=== PATIENT | male | born 1980 | race Caucasian/White ===

== ENCOUNTER 2020-11-14 16:04 | Outpatient (CLI) | payer OTHER, SELFPAY ==
--- NOTE | 2020-11-14 16:45 | MR_ITS ---
WS: [id number] MRI RIGHT KNEE NONCONTRAST TECHNIQUE: Axial PD, coronal PD fat sat, coronal PD, sagittal PD, and sagittal PD fat-sat images obta ined. CLINICAL INFORMATION: M25.569 - Pain in unspecified knee COMPARISON: None. FINDINGS: Distal quadriceps and patella tendons are intact. Normal anterior and posterior cruciate ligaments. N ormal lateral meniscus. Complex horizontal tear involving the posterior horn medial meniscus extendin g to the articular surface. No significant chondromalacia patella. No subchondral edema. Normal bone marrow signal in the femoral condyles and tibial plateau. Medial and lateral collateral ligaments are normal. Tiny suprapatellar effusion. MR/MR knee RT wo con* [id number] IMPRESSION: 1. Anterior and posterior cruciate ligaments are intact. 2. Complex tear involving the posterior horn medial meniscus extending to the articular surface. Lateral meniscus is normal. 3. Medial and lateral collateral ligaments are normal. 4. Tiny suprapatellar effusion. 5. Slightly hypertrophic patella which is otherwise normal in appearance. Outbridge grading:
== END 2020-11-14 16:05 | disposition home or self-care (01) ==
LOC: RADSHAW 16:13
PROVIDERS: Visit Provider Orthopaedic Surgery
DX: M25.561 Pain in right knee (principal); S83.231A Complex tear of medial meniscus, current injury, right knee, initial encounter; X58.XXXA Exposure to other specified factors, initial encounter; M25.461 Effusion, right knee
CPT/HCPCS: 73560; 73565; 73721

== ENCOUNTER → 2020-11-25 08:26 | Outpatient (BNVA) | payer OTHER, SELFPAY | PROVIDERS: Visit Provider Orthopaedic Surgery | DX: Z01.812 Encounter for preprocedural laboratory examination (principal); Z20.822 Contact with and (suspected) exposure to COVID-19 | CPT/HCPCS: 87635 ==

== ENCOUNTER 2020-12-01 11:42 | Day surgery (SDC) | payer OTHER, SELFPAY ==
[2020-12-01] VITALS (7 sets, daily range): BP systolic 108–143; BP diastolic 70–90; PULSE 70–83; RESP 17–20; TEMP 36.3–36.7; O2SAT 92–98
--- NOTE | 2020-12-01 13:19 | ANES.PREANE2 ---
Pre-Anesthetic Assessment Pre-Anesthetic Assessment: Height/Weight: Height 1.73 m Weight 87.09 kg Temp Pulse Resp BP Pulse Ox 97.3 F L 70 17 139/85 97 12/01/20 12:06 12/01/20 12:06 12/01/20 12:06 12/01/20 12:06 12/01/20 12:06 Preop Diagnosis: Right medial meniscal tear Proposed Procedure: Operation Date: 12/01/20 13:40 Proposed Procedures p Knee Arthroscopy with medial meniscus repair versus medial menicectomy 68331 S83.241A(Right) - Clement Love MD Was Beta Maryjo taken within 24 hours: N/A Was Clonidine taken within 24 hours: N/A Last intake: Intake Last Liquid Date 12/01/20 Last Liquid Time 08:30 Last Solid Date 11/30/20 Last Solid Time 20:00 Social: Social History: No alcohol and No tobacco Exam: Pre-Anes Outpt Exam: alert, oriented x 3, clear to auscultation bilaterally and regular rate & rhythm Airway: Submandibular: WNL Cervical ROM: WNL MP: 2 Dentition: Full History/ROS: No significant history except as noted Anesthetic Plan: ASA status: 1 Anesthesia: General Risk of > 500 ml blood loss (7ml/kg in children): No PFSH Anesthesia PFSH: Social History Alcohol intake: current Alcohol intake frequency: holidays/special occasions only Data Anesthesia Cardiac Studies: No Data to Display
[2020-12-01] MEDS: morphine 4 mg/mL SDV 1 mL 8 MG (14:15)
--- NOTE | 2020-12-01 15:25 | P.OP_ITS ---
Operative Report Date of procedure: December 01, 2020 Pre-op Diagnosis: Right medial meniscal tear Post-op diagnosis: same Post-op Findings: Same Procedure Done: Arthroscopic repair right medial meniscus Implants: [employer]hew NovoStitch anchors X4 Pathology: none sent Anesthesia: General Complications: None Findings: The patient had a complex tear of his medial meniscus consisting of central degeneration involving the central 30% of the posterior 40% of the medial meniscus. After removal of that degeneration a horizontal split was seen extending completely to the periphery. It was felt that meniscectomy would involve removal of the entirety of the posterior medial meniscus and repair was chosen to maintain meniscus to minimize risk of a future pain and degenerative changes Condition: stable Procedure: The patient was taken to the operating room and given a general anesthesia. He was given 2 g of Ancef and prepped and draped in the supine position. The knee was infiltrated with 30 cc of 0.5% Marcaine and 4 mg of morphine. The knee was entered through standard inferior medial and inferolateral portals. The diagnostic portion of the arthroscopy was performed. The only abnormal finding identified was the medial meniscal tear. Initially using a shaver and basket the central 30% of unstable meniscus was debrided back. This was trimmed up with an incisor shaver and Medrano [employer] Nephew Werewolf probe leaving approximately 70% of the meniscus behind. A horizontal cleavage tear was then identified centrally in the remaining meniscus extending entirely back to the rim. It was felt that excision of the meniscus back to stable margins would remove virtually the entirety of the meniscus and place this you nger active male at risk for future degenerative changes and pain. I decision was made to proceed with a meniscal repair. Using the Medrano [employer] Nephew NovoStitch suture passer 3 circumferential stitches were passed around the medial meniscus through the medial portal in a haybale configuration, approximately 5 mm apart, each secured with half hitch knots tightly suturing the superior flap to the inferior flap. A final stitch was passed through the lateral portal with the scope in the medial portal preparing the most anterior portion of the tear. The rule the rim was lightly touched up with the Medrano [employer] Nephew Werewolf probe. It was felt that approximately 60% of the width of the posterior meniscus was preserved. The knee was irrigated with saline. Portals were closed with 3-0 Prolene. Sterile dressings were applied and the patient was placed in a knee immobilizer. He was extubated and taken to recovery in stable condition.
--- NOTE | 2020-12-01 15:49 | ANE.PACU2 ---
Inpatient post-anesthesia follow up: Airway intact: Yes Vital signs: Temperature 97.3 F Pulse Rate 73 Respiratory Rate 18 Blood Pressure 141/90 Pulse Oximetry 98 Oxygen Delivery Me thod Room Air Oxygen Flow Rate Fraction of Inspir ed Oxygen Hydration adequate: Yes Nausea and vomiting: No Pain level: 2 Mental status: Baseline
--- NOTE | 2020-12-01 15:54 | SUR.PHASEI ---
1541 pt awake alert states pain as ( a little pressure) pt wants coke to drink and wants to eat a burger, distal foot pink warm with fast cap refill noted dressing D/I knee iimmobilizer in place. pt to ops handoff at bedside.
[2020-12-01] MEDS: HYDROcodone-acetaminophen 5-325 mg Tablet 1 TAB PO (16:01)
--- NOTE | 2020-12-02 06:58 | W.PM.OPSUD ---
Surgery/Procedure H&P Update DATE OF PROCEDURE: December 02, 2020 DATE H&P PERFORMED: 11/22/20 PREOP DIAGNOSIS: Right medial meniscal tear PLANNED PROCEDURE: Operation Date: 12/01/20 13:40 Proposed Procedures p Knee Arthroscopy with medial meniscus repair versus medial menicectomy 27850 S83.241A(Right) - Clement Love MD
== END 2020-12-01 16:39 | disposition home or self-care (01) ==
PROVIDERS: Visit Provider Orthopaedic Surgery
PROC: (CPT 29870; principal; 2020-12-01 13:30)
DX: S83.241A Other tear of medial meniscus, current injury, right knee, initial encounter (principal); X58.XXXA Exposure to other specified factors, initial encounter
CPT/HCPCS: 29881; J0690; J1885; J2270; J2405; J2704; J3010; J3490